=== PATIENT | female | born 1970 | race Two or more races ===

== ENCOUNTER 2024-09-02 17:11 | Emergency (ER) | payer OTHER ==
[~2024-09-02] VITALS: Ht 165.1 cm; Wt 70.0 kg
[2024-09-02 17:18] VITALS: BP 125/87; PULSE 81; RESP 16; TEMP 36.6; O2SAT 97
[2024-09-02 20:24] LABS: HEMATOCRIT. 39.7 % (36.0-48.0); HEMOGLOBIN. 12.2 g/dL (12.0-16.0); MEAN CORPUSCULAR HEMOGLOBIN 21.4 pg (28.0-32.0); MEAN CORPUSCULAR HGB CONC 30.8 g/dL (31.0-37.0); MEAN CORPUSCULAR VOLUME 69.4 fL (81.0-99.0); MEAN PLATELET VOLUME 8.2 fl (7.4-10.4); PLATELET 348 x1000/uL (130-400); RED BLOOD CELL COUNT 5.72 mill/uL (4.2-5.4); RED CELL DISTRIBUTION WIDTH 16.3 % (11.6-14.6)
[2024-09-02 20:36] LABS: CHLORIDE 102 mEq/L (98-107); POTASSIUM 4.2 mEq/L (3.5-5.1); SODIUM 137 mEq/L (136-145)
[2024-09-02 20:37] LABS: CARBON DIOXIDE 25 mEq/L (21-32)
[2024-09-02 20:42] LABS: CREATININE 0.7 mg/dL (0.6-1.0); GLUCOSE 175 mg/dL (70-105); UREA NITROGEN BLOOD 12 mg/dL (9-23)
[2024-09-02 20:44] LABS: ALANINE AMINOTRANSFERASE 14 IU/L (10-49); ALBUMIN 4.7 g/dL (3.2-4.8); ASPARTATE AMINOTRANSFERASE 13 IU/L (<34); BILIRUBIN DIRECT 0.2 mg/dL (<=3.0); BILIRUBIN TOTAL 0.5 mg/dL (0.1-1.0); PROTEIN TOTAL 8.6 g/dL (6.0-8.3); TROPONIN I HIGH SENSITIVITY < 4 ng/L (3.0-34)
[2024-09-02 20:48] LABS: DIFFERENTIAL COMMENT 1
[2024-09-02] MEDS: ONDANSETRON HCL 4MG/2ML INJ IV STA (21:43)
[2024-09-02] MEDS: SODIUM CHLORIDE 0.9% 1,000 ML IV ONE (21:43)
[2024-09-02] MEDS ORDERED: ONDA4TAB50 PO (22:21)
[2024-09-03 01:07] LABS: ANISOCYTOSIS 1+; HYPOCHROMASIA 2+; MICROCYTOSIS 3+; PLATELET ESTIMATE NORMAL
[2024-09-03 01:08] LABS: OVALOCYTES 1+
== END 2024-09-02 23:03 | disposition home or self-care (01) ==
LOC: ER 17:11
DX: R11.2 Nausea with vomiting, unspecified (principal); E11.9 Type 2 diabetes mellitus without complications; E78.5 Hyperlipidemia, unspecified
CPT/HCPCS: 99283; 96374; 96361; 80076; 80048; 83690; 85025; 84484; 36415; J2405; J7030